=== PATIENT | female | born 1950 | race Caucasian/White ===

== ENCOUNTER 2016-12-31 22:29 | Inpatient (IN) | payer MEDICARE ==
--- NOTE | ~2016-12-31 | DS ---
Discharge Summary [facility] [address] [place]. [address] NAME: MOSES HOPKINS : 48 STATUS : DIS IN PAT#: [id number] AGE: 66 ADM/REG DATE : 12/31/16 MR#: [id number] REPORT SERV DATE: 01/09/17 DICTATED BY: MANUELA RIZO DATE: 01/08/17 REPORT STATUS : Draft TRANSCRIBED BY: MODL DATE: 01/08/17 ADMISSION DATE: 12/31/2016 DISCHARGE DATE: 01/08/2017 DISCHARGE DIAGNOSES: 1. Sick sinus syndrome, with paroxysmal atrial fibrillation, previous pacemaker therapy, and five cardioversions over two years, with rapid ventricular response on admission. 2. Chest pain, secondary to severe mid LAD and mid circumflex stenosis per cardiac cath on 01/06/2017, status post stent placement on 01/07/2017. 3. Acute kidney injury, on chronic kidney disease, stage III, improved at discharge. 4. Hypertension. 5. Diastolic congestive heart failure. 6. Uncontrolled type 2 diabetes, with hemoglobin A1c of 8.4, with both hyper and hypoglycemia while hospitalized, related to procedures, dietary changes, and miss meals. Diabetic neuropathy. 7. Obstructive sleep apnea. 8. Morbid obesity. 9. Restrictive lung disease. 10.Left breast cancer post surgery with subsequent left arm lymphedema. 11.History of recurrent syncope, status post pacemaker placement, with resolution of syncope. 12.Iron deficiency 11/2016. 13.Last EGD and colonoscopy by Dr. Watt on 08/2016. 14.Chronic anemia. OPERATIONS AND PROCEDURES: 1. Coronary arteriography on 01/06/2017. 2. Successful 2.25 x 24 mm [employer] ALONSO study stent dilated to 2.5 mm in the mid LAD, successful 3 x 24 mm [employer] ALONSO study stent dilated to 3.25 mm, with a proximal stent dilated to 3.5 mm in the mid circumflex on 01/07/2017. 3. DC cardioversion on 01/03/2017. HISTORY OF PRESENT ILLNESS: This is a 66-year-old white female, who was triaged in the emergency room on 12/31/2016 at 2229 hours complaining of chest pain. Admission vital signs, blood pressure 112/83, temperature 97.8, pulse 122, respirations 17, and O2 saturation 99%. After evaluation in the emergency room, she was found to be in atrial fibrillation with rapid ventricular response associated with an elevated BNP, D-dimer, and creatinine. She was referred to the Hospitalist Service for admission. She was seen by Dr. Herrera Martinez and admitted as described on admission history and physical examination. ADDITIONAL HISTORY: Per Dr. Martinez. PHYSICAL EXAMINATION: Discharge Summary [address] [address] NAME: MOSES HOPKINS : 49 STATUS : DIS IN PAT#: [id number] AGE: 66 ADM/REG DATE : 12/31/16 MR#: [id number] REPORT SERV DATE: 01/09/17 DICTATED BY: MANUELA RIZO DATE: 01/08/17 REPORT STATUS : Draft TRANSCRIBED BY: MODL DATE: 01/08/[address] Martinez. ADMISSION LABORATORY: Per Dr. Martinez. HOSPITAL COURSE: She was admitted by Dr. Martinez with: 1. Symptomatic atrial fibrillation. 2. Chest pain. 3. Elevated BNP. 4. Chronic kidney disease, stage III. 5. All the setting of the above-mentioned comorbidities. On admission, she was started on Cardizem. Consultation was obtained with Cardiology and Nephrology. Of note was that, she had a CTA of the chest done in the emergency room that did not show evidence for pulmonary embolus, thoracic aortic aneurysm, or dissection. She was admitted to [address] [place] [address] Jay's impression was: 1. Recurrent severe substernal chest pressure radiating to the neck of unclear etiology. 2. Rate controlled atrial fibrillation. 3. Chronic anticoagulation for atrial fibrillation. 4. Morbid obesity. Dr. Jay felt that she would likely have an abnormal cardiac stress test with image. He recommended a coronary arteriography when her renal function would allow. Her Eliquis was held. She was started on a heparin drip. Dr. Pollock thought that her acute kidney injury was from contrast nephropathy. He suggested holding her FERNANDO inhibitor therapy and giving her IV hydration, holding cardiac catheterization till her creatinine improved. Her hospitalist care was by Dr. Patino on 01/01/2017, 01/02/2017, and 01/03/2017; and the undersigned on 01/04/2017 until discharge. On 01/03/2017, it was elected to perform DC cardioversion as she remained in atrial fibrillation. This was done successfully by Dr. Dixon. Her troponin values during her hospitalization were less than 0.02, less than 0.02, less than 0.02, and less than 0.02 on 12/31/2016, 01/01/2017, 01/03/2017, and 01/07/2017. Her creatinine levels were 1.58 on 12/31/2016, 2.08 on 01/02/2017, 1.9 on 01/03/2017, 1.95 on 01/04/2017, 1.65 on 01/05/2017, and 1.39 on 01/06/2017. Nephrology okayed her first cardiac catheterization on that date and findings are as noted. On 01/07/2017, her creatinine was 1.4, and she was taken back to the label folder, where the second procedure as described above was performed. There were no complications with either procedure. On the morning of 01/08/2017, her creatinine was 1.36. During her hospitalization, while on heparin drip, she had an episode of bleeding. It was thought to be anorectal. As noted, she had an endoscopic GI evaluation in August of this Discharge Summary [address] [place]. [address] NAME: MOSES HOPKINS : 48 STATUS : DIS IN PAT#: [id number] AGE: 66 ADM/REG DATE : 12/31/16 MR#: [id number] REPORT SERV DATE: 01/09/17 DICTATED BY: MANUELA RIZO DATE: 01/08/17 REPORT STATUS : Draft TRANSCRIBED BY: MODOfelia DATE: 01/08/17 year. On exam by the undersigned, she had no perirectal or rectal abnormalities on exam, and no blood in her rectal vault. Her hemoglobin was 10.5 on admission. It fell to a low of 8.1 on 09/09/2016, and was 9.1 at discharge. She did not have further evident gastrointestinal bleeding. She did have variable blood sugars while hospitalized. In part, this was related to diet testing and meals. When she was changed on 01/05/2017 to a basal bolus correction schedule that more closely matched her home regimen. She had blood sugars of 125, 146, 112, 133, and 140 over an approximate 24-hour period. On 01/08/2017, she was seen by Cardiology and Nephrology and she was given clearance for discharge. When seen by the undersigned, she was voiding without her Shah catheter postprocedure. Back pain, she had postprocedure and resolved. She was having no groin pain. She was ambulatory without chest pain or shortness of breath. She had not had further rectal bleeding. Her vital signs were stable and laboratory studies were as noted. At this point in her hospitalization, it was felt she had achieved a level of improvement and stability, where she will be safely discharged home. She will be seen by her primary care physician, Dr. Jeannine Valdes in one week. She will see Dr. Jay in 10 days. She will follow up with Nephrology as scheduled and Dr. Manuela Hinds as scheduled. She will continue her home diet and activity noting that prior to her hospitalization, she had made changes with sustained weight loss. DISCHARGE MEDICATIONS: Aspirin 81 mg daily, Coreg 25 mg twice daily, Plavix 75 mg daily for 30 days, Eliquis 2.5 mg twice daily, Lasix 20 mg daily, Tresiba 48 units at bedtime, with her home NovoLog FlexPen a.c. scale 1 unit per 5 g of carbohydrate, Synthroid 150 mcg daily noting TSH of 0.920 on 11/29/2016, Mycostatin topical powder to groin and skin folds as needed, Prilosec 40 mg twice daily, sotalol 120 mg twice daily, Tylenol, Artificial Tears as needed, fiber capsule daily, vitamin D 50,000 units every seven days, ProAir RespiClick two puffs every four hours as needed, vitamin C 125 mg daily, Flonase nasal spray as needed, albuterol nebs every six hours as needed. She has some facial hydrocortisone cream and perirectal creams to use as needed. She will not use her home lisinopril until office followup. Discharge time greater than 30 minutes. DD/MODL Manuela Rizo M.D. / [id number] CC: Manuela Rizo M.D. Discharge Summary [address] [place]. [address] NAME: MOSES HOPKINS : 48 STATUS : DIS IN PAT#: [id number] AGE: 66 ADM/REG DATE : 12/31/16 MR#: [id number] REPORT SERV DATE: 01/09/17 DICTATED BY: MANUELA RIZO DATE: 01/08/17 REPORT STATUS : Draft TRANSCRIBED BY: MODL DATE: 01/08/17 SEBASTIAN VALDES M.D. Young S Chang, MD Henry Paik, M.D. Nathan Chamberlain, M.D. Ondrej J Lisy, M.D. Kevin P Luce, M.D. David Huffman, M.D.
--- NOTE | ~2016-12-31 | HP ---
History And Physical [address] [place]. [address] NAME: MOSES HOPKINS : 48 STATUS : ADM Verna PAT#: [id number] AGE: 66 ADM/REG DATE : 12/31/16 MR#: [id number] REPORT SERV DATE: 01/03/17 DICTATED BY: ROSEMARY RICARDO DATE: 01/01/17 REPORT STATUS : Draft TRANSCRIBED BY: MODL DATE: 01/01/17 DATE OF ADMISSION: 12/31/2016 POOR AUDIO CHIEF COMPLAINT: A 66-year-old female presenting with shortness of breath and chest pain. HISTORY OF PRESENT ILLNESS: The patient's history was obtained through careful interview with the patient, coupled with review of [facility] medical records. The patient states that she was in usual state of health when 7:30 on the evening of 12/31/2016, she began to develop chest pain and shortness of breath. She describes the shortness of breath as feeling "constricted" in her lungs with an exertional component. She describes the pain in her chest as right-sided, radiating to her shoulder blade, it is sharp quality. Also across the middle of her chest, up to an 8/10 severity, that is still not fully resolved. She has had no lower extremity edema. No palpitations. No lightheadedness. No nausea or vomiting. No abdominal pain. No change of bowel or bladder habit. No fevers or chills. REVIEW OF SYSTEMS: Otherwise, a 14-point review of systems was obtained was negative. PAST MEDICAL HISTORY: 1. Atrial fibrillation. Followed by Dr. Hernandez. 2. Left breast cancer with surgery in 1995. 3. Hypothyroidism. 4. Diabetes. Seen by Dr. Hinds. 5. Pacemaker. 6. Obstructive sleep apnea, but intolerant of CPAP. 7. Chronic left arm lymphedema with history of cellulitis. 8. Syncope. Followed by Dr. June with multiple workups. 9. Urinary tract infection. 10.Superficial venous thrombosis. 11.Psoriasis. 12.Diastolic congestive heart failure. 13.Nephrolithiasis. 14.Fibromyalgia. 15.Hypertension. 16.(inaudible) . 17.Neuropathy. 18.Pneumonia. 19.Spinal stenosis. History And Physical [address]. [address] NAME: MOSES HOPKINS : 48 STATUS : ADM Verna PAT#: [id number] AGE: 66 ADM/REG DATE : 12/31/16 MR#: [id number] REPORT SERV DATE: 01/03/17 DICTATED BY: ROSEMARY RICARDO DATE: 01/01/17 REPORT STATUS : Draft TRANSCRIBED BY: MODL DATE: 01/01/17 20.Chronic kidney disease, stage 3. Baseline creatinine of 1.2 to 1.5. PAST SURGICAL HISTORY: 1. Left mastectomy for breast cancer. 2. left frontal craniotomy for an anterior temporal lobectomy in 1980. 3. Umbilical hernia repair. 4. Cholecystectomy. 5. Left foot surgery. 6. Left knee surgery. ALLERGIES: SULFA, NIACIN, CODEINE, CARDIZEM. SOCIAL HISTORY: No tobacco abuse. No alcohol abuse. She is a . Has one daughter, one granddaughter. Lives in [place], [place]. FAMILY HISTORY: Mother at 69 years of age of a stroke. Father at 71 years of age of a stroke and heart disease. Sister at 69 years of age of congestive heart failure. Brother at 55 years with myocardial infarction. There is a family history of alcoholism. CURRENT MEDICATIONS: Include Tylenol, albuterol, Eliquis 5 mg p.o. b.i.d., eye drops, Coreg 25 mg p.o. b.i.d., vitamin D, Lasix 20 mg p.o. daily, Flonase, hydrocortisone cream, NovoLog, Tresiba insulin 48 units subcutaneous at bedtime, Synthroid 150 mcg daily, lisinopril 2.5 mg p.o. daily, Prilosec 40 mg p.o. b.i.d., sotalol 120 mg p.o. b.i.d., fiber, vitamin C. PHYSICAL EXAMINATION: VITAL SIGNS: Temperature 97.8, pulse 122, blood pressure 112/87, respiratory rate 17, O2 saturation 99% on room air. GENERAL: A pleasant, cooperative, female, in no evidence of distress while I am evaluating her. HEENT: Pupils equal, round, and reactive to light. No conjunctival pallor. No scleral icterus. Nares are patent. Oropharynx is clear of obstruction. Moist mucous membranes. NECK: Trachea midline. No thyromegaly. LYMPH: No cervical lymphadenopathy. No supraclavicular lymphadenopathy. RESPIRATORY: I do not appreciate any on the lung exam. There are definitely no wet rales. No wheezes, no rhonchi. The patient has a normal respiratory effort. CARDIOVASCULAR: Tachycardic, irregularly irregular, intermittently paced on the monitor. No murmurs, rubs, or gallops. I do not appreciate any lower extremity edema. ABDOMEN: Soft, nontender, nondistended. Normal bowel sounds auscultated throughout. No hepatosplenomegaly. DERMATOLOGIC: Warm and dry extremities. No pallor. No cyanosis. PSYCHIATRIC: Normal affect. Good mood. Alert and oriented x3. LABORATORY DATA: Brain natriuretic peptide 435. Troponin negative. INR 1.2. White blood History And Physical [address] [address] NAME: MOSES HOPKINS : 48 STATUS : ADM Verna PAT#: [id number] AGE: 66 ADM/REG DATE : 12/31/16 MR#: [id number] REPORT SERV DATE: 01/03/17 DICTATED BY: ROSEMARY RICARDO DATE: 01/01/17 REPORT STATUS : Draft TRANSCRIBED BY: MODL DATE: 01/01/17 cell count 6.6, hemoglobin 10, hematocrit 33, platelets 234. Sodium 139, potassium 4.6, chloride 104, bicarb 32, BUN 41, creatinine 1.58, glucose 126. STUDIES: 1. Chest x-ray by my own evaluation shows no acute cardiopulmonary process. 2. EKG by my own evaluation shows atrial fibrillation, occasional ventricular pacing. 3. CT angiogram of the chest shows no pulmonary embolism. ASSESSMENT AND PLAN: 1. Symptomatic rapid atrial fibrillation. Place on Cardizem drip IV. Check telemetry. Place on Eliquis. Consult Dr. Hernandez, [employer] attendant. 2. Chest pain evaluation. Question if it is only related to atrial fibrillation? Follow troponin. 3. Elevated brain natriuretic peptide. History of diastolic congestive heart failure. No evidence of volume overload currently though. We will monitor closely. 4. Chronic kidney disease stage 3. KPL/MODL Rosemary Ricardo M.D. / [id number] CC: MD Maria T Yu Danielle Ondrej J Lisy, M.D. David Huffman, M.D.
--- NOTE | ~2016-12-31 | CN ---
Consultation Report [facility] [address] [place]. [address] NAME: MOSES ROBLES : 48 STATUS : ADM Verna PAT#: [id number] AGE: 66 ADM/REG DATE : 12/31/16 MR#: [id number] REPORT SERV DATE: 01/02/17 DICTATED BY: AIDA ENGLAND DATE: 01/02/17 REPORT STATUS : Draft TRANSCRIBED BY: MODL DATE: 01/02/17 NEPHROLOGY CONSULT DATE OF CONSULTATION: 01/02/2017 REASON FOR CONSULT: Acute kidney injury, CKD in patient who needs contrast. HISTORY OF PRESENT ILLNESS: Ms. Robles is a 66-year-old white female who appears to have some degree of chronic kidney disease. It is the weekend and records from the office are not available. She was here in 11/2016 with volume overload. During that admission, her creatinine ranged between 1.1 and 1.7. She was sent home on 12/02/2016, with a creatinine of 1.7 with repeat labs on 12/15/2016, showing creatinine of 1.5. 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 At which time, she underwent CT angiogram of the chest which showed no evidence of PE. 80 mL of contrast was given. No labs were checked yesterday, but today her creatinine was up to 2.1. Cardiology would like to perform cardiac catheterization in the next few days. PAST MEDICAL HISTORY: 1. Chronic kidney disease, recent baseline creatinine 1.1 to 1.5. 2. Atrial fibrillation, status post multiple cardioversions, the most recent in 07/2016, on chronic Eliquis therapy. 3. Insulin-dependent diabetes mellitus. 4. History of pacemaker. 5. Hypertension, on FERNANDO inhibitor. 6. Hypothyroidism. 7. Obesity. CURRENT MEDICATIONS: Include albuterol inhaler, Eliquis 5 mg b.i.d., Coreg 25 mg b.i.d., vitamin D, Flonase, Lasix 20 mg daily, Tresiba 48 units at bedtime, Synthroid 150 mcg daily, Prinivil 2.5 mg daily, Prilosec, Betapace 120 mg b.i.d., and vitamin C. FAMILY HISTORY: Noncontributory. SOCIAL HISTORY: She is a . Retired sitter. Lives in [place] with her daughter and granddaughter. REVIEW OF SYSTEMS: Significant for events as per HPI with palpitations and chest pain and dyspnea. Does not take OTC NSAIDs at home. Denies urinary symptoms. PHYSICAL EXAMINATION: VITAL SIGNS: Temperature 96.8, pulse 77, respirations 20, blood pressure 115/71, and 98% saturation on room air. Intake and output are not complete. GENERAL: She is a very pleasant, friendly white female. Awake, alert, oriented, Consultation Report [facility] [address] [place]. [address] NAME: MOSES ROBLES : 49 STATUS : ADM Verna PAT#: [id number] AGE: 66 ADM/REG DATE : 12/31/16 MR#: [id number] REPORT SERV DATE: 01/02/17 DICTATED BY: AIDA ENGLAND DATE: 01/02/17 REPORT STATUS : Draft TRANSCRIBED BY: YAHAIRA DATE: 01/02/17 cooperative with the exam. Neuro exam is grossly nonfocal. She is in no distress. Eating lunch. Sitting in her hospital bed. HEENT: Sclerae without icterus. Conjunctivae not injected. Oropharynx is clear. NECK: JVD 8 to 10 cm. She has bilateral rhonchi without dyspnea or tachypnea on room air. HEART: Rate controlled. Rhythm is irregular. 2/6 murmur without rub. ABDOMEN: Obese, soft, nontender, nondistended. Bowel sounds present throughout without rebound, guarding, or peritoneal signs. EXTREMITIES: Show 1+ pitting edema to the knees. SKIN: Exam without rash. MUSCULOSKELETAL: Shows no gout. : Deferred. There is no Shah catheter. She has no livedo reticularis. NEUROLOGIC: Grossly nonfocal. Mood and affect are appropriate. LABORATORY DATA: Sodium 138, potassium 4.2, bicarb 27, BUN 56, creatinine 2.1, GFR 24, calcium 9.1, and magnesium 2.3. Troponin negative x2. White count 5100. INR 1.3. No eosinophils on the differential. Hemoglobin 11.2, platelets 261,000. Urinalysis shows no blood or protein. Echo, 11/2015 showed EF 55% with diastolic dysfunction. ASSESSMENT AND PLAN: Ms. Robles has chronic kidney disease, previous baseline creatinine 1.1 to 1.5, now with acute kidney injury in the setting of atrial fibrillation, pacemaker, insulin-dependent diabetes mellitus, chest pain, hypothyroidism. 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 In view of worsening renal function, we will stop the FERNANDO inhibitor. IV hydration gently with a close watch on her volume status with her diastolic dysfunction. She is high risk cardiac catheterization for worsening renal function with further exposure to contrast. Hold off as long as this is non-emergent. If renal function improves, she can proceed with renal arteriogram later in the week? Group will follow closely. Appreciate consult. DEWAYNE/MODL Aida England M.D. / [id number] CC: MD NINI Yu DANIELLE
--- NOTE | ~2016-12-31 | OP ---
Record Of Operation [facility] [address] [place]. [address] NAME: MOSES HOPKINS : 48 STATUS : ADM IN PAT#: [id number] AGE: 66 ADM/REG DATE : 12/31/16 MR#: [id number] REPORT SERV DATE: 01/03/17 DICTATED BY: GEORGE CABALLERO. DATE: 01/03/17 REPORT STATUS : Draft TRANSCRIBED BY: MODL DATE: 01/03/17 DATE OF PROCEDURE: 01/03/2017 CARDIOVERSION REPORT INDICATIONS: 66-year-old female with recurrent symptomatic atrial fibrillation and rapid ventricular response. No OTONIEL requested, multiple prior procedures with chronic therapeutic anticoagulation on Eliquis, now transitioned to IV heparin due to pending procedures. OTHER: Informed consent was obtained, signed on the chart prior to proceeding, a time-out was performed, and sedation was per Anesthesia. PROCEDURE: After adequate anesthesia was confirmed, a single 200 joule biphasic energy shock was delivered with the pads in the anterior-posterior position. Successful cardioversion to sinus rhythm at 79 beats per minute. COMPLICATIONS: None. CONCLUSION: Successful cardioversion to sinus rhythm. AEA/YAHAIRA George Caballero M.D. / [id number] CC: MD SEBASTIAN Yu
--- NOTE | ~2016-12-31 | CN ---
Consultation Report [facility] [address] [place]. [address] NAME: MOSES HOPKINS : 48 STATUS : ADM Verna PAT#: [id number] AGE: 66 ADM/REG DATE : 12/31/16 MR#: [id number] REPORT SERV DATE: 01/01/17 DICTATED BY: BRANDIN CHAPPELL DATE: 01/01/17 REPORT STATUS : Draft TRANSCRIBED BY: MODOfelia DATE: 01/01/17 CARDIOLOGY CONSULTATION DATE OF CONSULTATION: REFERRING REASON: Severe chest pain. HISTORY OF PRESENT ILLNESS: This is a pleasant 66-year-old white obese female with complex past medical history, well known to me from [facility]. She has recurrent hospitalizations for fluid overload and also chest pains. She does not have a known documented coronary artery disease, but has some multiple risk factors for it. She has paroxysmal atrial fibrillation status post cardioversion in 2014 and in 2015. She has been on chronic sotalol and now on Eliquis. She has not tolerated amiodarone. The patient has a preserved systolic function, but moderate diastolic dysfunction. She has had recurrent hospitalizations for fluid overload. She had recent hospitalization in November at [facility] for fluid overload. She was diuresed and discharged home. She apparently has been losing some weight. She still has a BMI of 46, however. The patient has a pacemaker in place. She has a history of breast cancer and diabetes. She has been in her usual state of health until yesterday evening when she developed at 0720 hours severe initially sharp right-sided pain, which transferred in a few minutes to severe pressure. It lasted about 1-1/2 hours and she called an ambulance. She has been brought to emergency room. Her first enzymes were negative. Pain was finally relieved with morphine. While she had recurrent severe chest pain, a CT of the chest was performed, which did not rule out any vascular catastrophe or pulmonary embolism. She was found to be in a rate-controlled atrial fibrillation, which is now asymptomatic. The patient has a transient episode of palpitations yesterday, but does not feel any palpitations now. She still has episodes of severe substernal chest pressure now, radiating to the neck last night, requiring morphine. She is tearful and stated that she never had similar chest pressure like that before. She has chronic mild lower extremity edema, but was able to lose weight. She has mild chronic dyspnea on exertion. Denies signs of PND. No syncope. She has been reported taking Eliquis daily. REVIEW OF SYSTEMS: The rest of review of systems is negative. PAST MEDICAL HISTORY: 1. Chronic diastolic heart failure with recent fluid overload. 2. Preserved systolic function with EF of 55% in 11/2016. 3. Pacemaker in place for sick sinus syndrome. 4. Paroxysmal atrial fibrillation with a history of cardioversion in 2014 and 2015. 5. Chronic anticoagulation with Eliquis. 6. Intolerance to amiodarone due to the general weakness. 7. Chronic sotalol use. 8. Morbidly obese with BMI of 46. 9. History of negative nuclear cardiac stress test in 2012 with nonobstructive CAD in 2006 Consultation Report [address] [place]. [address] NAME: MOSES HOPKINS : 48 STATUS : ADM Verna PAT#: [id number] AGE: 66 ADM/REG DATE : 12/31/16 MR#: [id number] REPORT SERV DATE: 01/01/17 DICTATED BY: BRANDIN CHAPPELL DATE: 01/01/17 REPORT STATUS : Draft TRANSCRIBED BY: YAHAIRA DATE: 01/01/17 elsewhere. 10.History of breast cancer. 11.Remote history of GI bleeding. No bleeding recently. 12.Hypertension. 13.Diabetes mellitus. SOCIAL HISTORY: The patient is a . She denies smoking, drinking alcohol, or using street drugs. FAMILY HISTORY: Negative for sudden cardiac or premature coronary artery disease in the family. ALLERGIES: SULFA AND CODEINE. SHE REPORTEDLY HAS SOME ITCHING WITH CARDIZEM AND ALSO INTOLERANCE TO AMIODARONE DUE TO WEAKNESS. HOME MEDICATIONS: Tylenol p.r.n., albuterol as needed, Eliquis 5 mg twice a day, Coreg 25 mg twice a day, Flonase, Lasix 20 mg once a day, insulin, Synthroid 150 mcg once a day, Prinivil 2.5 mg once a day, Prilosec 40 mg once a day, and sotalol 120 mg twice a day. PHYSICAL EXAMINATION: GENERAL: No acute distress. Morbid obese female, comfortable sitting on a bed. VITAL SIGNS: Blood pressure 120/82, heart rate 91 and irregular irregular. HEENT - Pupils reactive to light and accommodation. Moist mucosa membrane. LUNGS: Decreased breath sounds bilaterally. No crackles. ABDOMEN: Morbidly obese, distended, nontender. COR: Normal S1, S2. No S3 or S4. No significant rub or murmurs. EXTREMITIES: Lower extremities, trace edema around the ankle with decreased pedal pulses bilaterally. SKIN: Warm with normal turgor. MS - No kyphosis. NEURO/PSY - Alert and oriented. Nonfocal DATA: CBC is remarkable for hemoglobin of 10.5 and INR of 1.2. Creatinine 1.5, BUN 41. Troponin x2 negative. Brain natriuretic peptide 475, which was [address] of the chest: No acute pathology. No evidence of pulmonary embolism. Electrocardiogram revealed atrial fibrillation at 84 beats per minute with 1 PVC, and earlier today, 91 beats per minute, rate-controlled atrial fibrillation with 2 PVCs. ASSESSMENT AND PLAN: 1. Recurrent severe substernal chest pressure radiating to the neck of unclear etiology. 2. Rate-controlled atrial fibrillation. 3. Chronic anticoagulation for atrial fibrillation. 4. Morbid obesity. I reviewed current situation with the patient. The patient is now tearful with recurrent severe chest pain, requiring morphine. Etiology of her chest pain is unclear, and there is no clear evidence of acute coronary syndrome. Due to her Consultation Report [address] [place]. [address] NAME: MOSES HOPKINS : 48 STATUS : ADM Verna PAT#: [id number] AGE: 66 ADM/REG DATE : 12/31/16 MR#: [id number] REPORT SERV DATE: 01/01/17 DICTATED BY: BRANDIN CHAPPELL DATE: 01/01/17 REPORT STATUS : Draft TRANSCRIBED BY: YAHAIRA DATE: 01/01/17 body habitus, I am concerned that she may have falsely abnormal cardiac stress test. We will proceed with it. She has had recurrent hospitalizations and we yet to have a definitive diagnosis to see if she has any obstructive coronary artery disease. Thus, we will proceed with coronary arteriogram on Tuesday. The patient has been explained risks and benefits, she has agreed to proceed. We will hold her Eliquis. We will start her on intravenous heparin, continue beta-blockers, FERNANDO inhibitor. We will put her on fluid restriction and follow her heart kidney function carefully. No obvious signs of fluid overload on physical exam currently. CT has not revealed any pleural effusion. If there is no obstructive coronary artery disease, we will plan to restart Eliquis. No clear indication for cardioversion at the present time while the patient is asymptomatic and atrial fibrillation is now rate controlled. Plan has been discussed with Dr. Patino who is primary on her in the hospital. OJL/MODL Brandin Chappell M.D. / [id number] CC: MD NINI Yu DANIELLE
[~2016-12-31 22:29] MED LIST: ACET500CAP PO; ALEVE220 MG PO; ARMOUR THYRO90 MG PO; BETAP120 PO; BETAPACE80 PO; C2 PO; CORDARONE PO; COREG25 PO; COUMADIN4 MG PO; DCN100 PO; ELIQUIS 5 MG TAB5 MG PO; FIBER PO; FLONASE NAS; FLORASTOR250 MG PO; GLUCPH PO; HYGROTON 25 MG25 MG PO; IMDUR60 PO; KDUR10 PO; L20 PO; LEVEMFLXPN SC; LEVEMIR SC; LEVOTHYROXIN137 MCG PO; LEVOTHYROXIN150 MCG PO; LIPITOR40 PO; LISINOPRIL40 MG PO; LOP25 PO; LOP50 PO; MAXIMUM D3 PO; NEUR300 PO; NORCO1 TA1 PO; NOVOLOG SC; NOVOPEN SC; NOVREGPUMP SC; PENICILLIN V PO/LIQ; PENICILLIN VK PO; PENICILLN VK500 MG PO; PENVK250 PO; PREV30 PO; PRILO PO; PRILOSEC40 MG PO; PRIN10 PO; PRIN2.5 PO; PRIN20 PO; PRIN5 PO; PROAIRRESP INH; PROVHFA INH; SPIRO25 PO; SYMBICORT 160/41 INH INH; SYN.15 PO; SYN125 PO; SYNTHROID137 MCG PO; SYNTHROID175 MCG PO; SYNTHROID200 MCG PO; T PO; TOPXL25 PO; TRESIBA FL100 UNIT/1 SC; TRESIBA FL200 UNIT/1 SC; TYLENOL ARTH650 MG PO; ULTRAM50 PO; VANCOCIN HCL125 MG PO/LIQ; VIBRATAB100 MG PO; VITAMIN C PO; VITAMIN C100 M1 PO; VITAMIN C100 MG PO; VITC500 PO; VITD PO; ZESTRIL20 MG PO; ZOCOR20 PO; [UNRECOGNIZED DRUG - CODE]; [UNRECOGNIZED DRUG - OTHER] TOP
[2017-01-01 00:24] LABS: BASOPHILS 0.5 %; BASOPHILS ABSOLUTE 0.03 10/3/uL (0.0-0.16); EOSINOPHILS 1.8 %; EOSINOPHILS ABSOLUTE 0.12 10/3/uL (0.0-0.53); HEMATOCRIT 32.8 % (36.0-48.0); HEMOGLOBIN 10.5 g/dL (12.0-16.0); IMMATURE GRANULOCYTES 0.2 %; IMMATURE GRANULOCYTES ABSOLUTE 0.01 10/3/uL (0.0-0.11); LYMPHOCYTES 41.2 %; MEAN CORPUSCULAR HEMOGLOB 30.6 pg (26.0-34.0); MEAN CORPUSCULAR VOLUME 95.6 fL (80-100); MEAN PLATELET VOLUME 9.4 fL (9.2-13.0); MONOCYTES 5.9 %; MONOCYTES ABSOLUTE 0.39 10/3/uL (0.21-1.20); NEUTROPHILS 50.4 %; NEUTROPHILS ABSOLUTE 3.31 10/3/uL (2.02-8.40); PLATELET COUNT 234 10/3/uL (150-400); RED CELL COUNT 3.43 10/6/uL (4.0-5.6); WHITE BLOOD CELLS 6.6 10/3/uL (4.5-10.5)
[2017-01-01 00:25] LABS: ER CBC TAT 0 Hrs 00 MinsNP; MANUAL DIFF NO %
[2017-01-01 00:31] LABS: INTERNATIONAL NORMAL RATI 1.2 UNITS (-); PARTIAL THROMBO TIME 29.1 SEC (22.5-37.2); PROTIME (NOT ORD) 14.7 SEC (12.0-14.5)
[2017-01-01 00:34] LABS: D-DIMER QUANTITATIVE 0.62 ug/mLFEU (< 0.50)
[2017-01-01 00:37] LABS: CALCIUM, SERUM 9.1 MG/DL (8.5-10.4); CHEST PAIN PROFILE TAT 0 Hrs 20 Mins; CHLORIDE, SERUM 104 MMOL/L (96-112); CREATININE 1.58 MG/DL (0.55-1.02); GFR AFRICAN AMERICAN 39 ML/MIN (>=60); GFR NON AFRICAN AMERICAN 34 ML/MIN (>=60); POTASSIUM, SERUM 4.6 MMOL/L (3.5-5.3); SODIUM, SERUM 139 MMOL/L (135-148); TROPONIN I <0.02 NG/ML (<0.05)
[2017-01-01 00:41] LABS: BUN (BLOOD UREA NITROGEN) 41 MG/DL (6-23); CO2 (CARBON DIOXIDE) 32 MMOL/L (24-34); GLUCOSE, SERUM 126 MG/DL (60-99)
[2017-01-01] MEDS ORDERED: ACET500CAP PO (03:15)
[2017-01-01] MEDS ORDERED: TEARS PURE OPH (03:15)
[2017-01-01] MEDS ORDERED: L20 PO (03:16)
[2017-01-01] MEDS ORDERED: COREG25 PO (03:16)
[2017-01-01] MEDS ORDERED: HYDROCORTISONE30 G1 TOP (03:16)
[2017-01-01] MEDS ORDERED: VITD PO (03:18)
[2017-01-01] MEDS ORDERED: PRIN2.5 PO (03:18)
[2017-01-01] MEDS ORDERED: SYN.15 PO (03:18)
[2017-01-01] MEDS ORDERED: FIBER 0.52 GM PO (03:18)
[2017-01-01] MEDS ORDERED: PRILOSEC40 MG PO (03:18)
[2017-01-01] MEDS ORDERED: BETAP120 PO (03:19)
[2017-01-01] MEDS ORDERED: NYSTATPOW TOP (03:19)
[2017-01-01] MEDS ORDERED: ELIQUIS 2.5 MG2.5 MG PO (03:19)
[2017-01-01] MEDS ORDERED: TRESIBA FL200 UNIT/1 SC (03:19)
[2017-01-01] MEDS ORDERED: PROAIRRESP INH (03:20)
[2017-01-01] MEDS ORDERED: VITAMIN C PO (03:21)
[2017-01-01] MEDS ORDERED: FLONASE NAS (03:21)
[2017-01-01] MEDS ORDERED: NOVOPEN SC (03:21)
[2017-01-01] MEDS ORDERED: ALBUTEROL0.083 % INH (03:22)
[2017-01-01 10:21] LABS: ASCORBIC ACID (UR NOT ORDER) NEG (NEG); BILIRUBIN, URINE NEGATIVE (NEG); KETONE, URINE NEGATIVE (NEG); LEUKOCYTE ESTERASE(NOT OR LARGE (NEG); WBC (NOT ORDERED) (RFLEX) 21 (0-5)
[2017-01-01 15:13] LABS: BASOPHILS 0.2 %; BASOPHILS ABSOLUTE 0.01 10/3/uL (0.0-0.16); EOSINOPHILS 0 %; HEMOGLOBIN 11.2 g/dL (12.0-16.0); IMMATURE GRANULOCYTES 0.2 %; IMMATURE GRANULOCYTES ABSOLUTE 0.01 10/3/uL (0.0-0.11); LYMPHOCYTES 11.1 %; LYMPHOCYTES ABSOLUTE 0.56 10/3/uL (0.67-4.30); MEAN CORPUS HGB CONC 32.9 g/dL (32.0-36.0); MEAN CORPUSCULAR HEMOGLOB 31.4 pg (26.0-34.0); MEAN CORPUSCULAR VOLUME 95.2 fL (80-100); MONOCYTES 0.6 %; MONOCYTES ABSOLUTE 0.03 10/3/uL (0.21-1.20); NEUTROPHILS 87.9 %; NEUTROPHILS ABSOLUTE 4.45 10/3/uL (2.02-8.40); PLATELET COUNT 261 10/3/uL (150-400); RBC DISTRIBUTION WIDTH 13.1 % (12.0-16.0); RED CELL COUNT 3.57 10/6/uL (4.0-5.6); WHITE BLOOD CELLS 5.1 10/3/uL (4.5-10.5)
[2017-01-01 15:14] LABS: MANUAL DIFF NO %
[2017-01-01 15:23] LABS: INTERNATIONAL NORMAL RATI 1.3 UNITS (-); PARTIAL THROMBO TIME 29.4 SEC (22.5-37.2); PROTIME (NOT ORD) 16.4 SEC (12.0-14.5)
[2017-01-02 07:06] LABS: CALCIUM, SERUM 8.8 MG/DL (8.5-10.4); CHLORIDE, SERUM 102 MMOL/L (96-112); POTASSIUM, SERUM 4.2 MMOL/L (3.5-5.3); SODIUM, SERUM 138 MMOL/L (135-148)
[2017-01-02 07:07] LABS: BUN (BLOOD UREA NITROGEN) 56 MG/DL (6-23); CO2 (CARBON DIOXIDE) 27 MMOL/L (24-34); CREATININE 2.08 MG/DL (0.55-1.02); GFR AFRICAN AMERICAN 28 ML/MIN (>=60); GFR NON AFRICAN AMERICAN 24 ML/MIN (>=60); GLUCOSE, SERUM 70 MG/DL (60-99)
[2017-01-03 01:47] LABS: BUN (BLOOD UREA NITROGEN) 54 MG/DL (6-23); CALCIUM, SERUM 8.9 MG/DL (8.5-10.4); CHLORIDE, SERUM 103 MMOL/L (96-112); CO2 (CARBON DIOXIDE) 31 MMOL/L (24-34); CPK 68 U/L (0-200); GFR AFRICAN AMERICAN 31 ML/MIN (>=60); GFR NON AFRICAN AMERICAN 27 ML/MIN (>=60); GLUCOSE, SERUM 70 MG/DL (60-99); POTASSIUM, SERUM 3.9 MMOL/L (3.5-5.3); SODIUM, SERUM 138 MMOL/L (135-148); TROPONIN I <0.02 NG/ML (<0.05)
[2017-01-03 01:49] LABS: CK-MB 1.7 NG/ML
[2017-01-03 02:10] LABS: BASOPHILS 0.2 %; BASOPHILS ABSOLUTE 0.01 10/3/uL (0.0-0.16); EOSINOPHILS 0.9 %; EOSINOPHILS ABSOLUTE 0.06 10/3/uL (0.0-0.53); HEMOGLOBIN 9.7 g/dL (12.0-16.0); IMMATURE GRANULOCYTES 0.2 %; IMMATURE GRANULOCYTES ABSOLUTE 0.01 10/3/uL (0.0-0.11); LYMPHOCYTES 48.9 %; LYMPHOCYTES ABSOLUTE 3.22 10/3/uL (0.67-4.30); MEAN CORPUS HGB CONC 33.4 g/dL (32.0-36.0); MEAN CORPUSCULAR VOLUME 95.7 fL (80-100); MEAN PLATELET VOLUME 9.7 fL (9.2-13.0); MONOCYTES 5.3 %; MONOCYTES ABSOLUTE 0.35 10/3/uL (0.21-1.20); NEUTROPHILS 44.5 %; NEUTROPHILS ABSOLUTE 2.93 10/3/uL (2.02-8.40); PLATELET COUNT 262 10/3/uL (150-400); RBC DISTRIBUTION WIDTH 13.3 % (12.0-16.0); RED CELL COUNT 3.03 10/6/uL (4.0-5.6); WHITE BLOOD CELLS 6.6 10/3/uL (4.5-10.5)
[2017-01-03 02:11] LABS: MANUAL DIFF NO %
[2017-01-03 02:39] LABS: BUN (BLOOD UREA NITROGEN) 52 MG/DL (6-23); CALCIUM, SERUM 8.9 MG/DL (8.5-10.4); CHLORIDE, SERUM 104 MMOL/L (96-112); CREATININE 1.89 MG/DL (0.55-1.02); GFR AFRICAN AMERICAN 31 ML/MIN (>=60); GFR NON AFRICAN AMERICAN 27 ML/MIN (>=60); GLUCOSE, SERUM 60 MG/DL (60-99); POTASSIUM, SERUM 4.1 MMOL/L (3.5-5.3); SODIUM, SERUM 140 MMOL/L (135-148)
[2017-01-03 02:47] LABS: CO2 (CARBON DIOXIDE) 25 MMOL/L (24-34)
[2017-01-04 01:56] LABS: BASOPHILS 0.3 %; BASOPHILS ABSOLUTE 0.02 10/3/uL (0.0-0.16); EOSINOPHILS 1.1 %; EOSINOPHILS ABSOLUTE 0.07 10/3/uL (0.0-0.53); HEMOGLOBIN 10.2 g/dL (12.0-16.0); IMMATURE GRANULOCYTES 0.2 %; IMMATURE GRANULOCYTES ABSOLUTE 0.01 10/3/uL (0.0-0.11); LYMPHOCYTES 30.5 %; LYMPHOCYTES ABSOLUTE 1.95 10/3/uL (0.67-4.30); MEAN CORPUS HGB CONC 32.9 g/dL (32.0-36.0); MEAN CORPUSCULAR VOLUME 97.2 fL (80-100); MEAN PLATELET VOLUME 9.9 fL (9.2-13.0); MONOCYTES 10.3 %; MONOCYTES ABSOLUTE 0.66 10/3/uL (0.21-1.20); NEUTROPHILS 57.6 %; NEUTROPHILS ABSOLUTE 3.69 10/3/uL (2.02-8.40); PLATELET COUNT 282 10/3/uL (150-400); RBC DISTRIBUTION WIDTH 13.2 % (12.0-16.0); RED CELL COUNT 3.19 10/6/uL (4.0-5.6); WHITE BLOOD CELLS 6.4 10/3/uL (4.5-10.5)
[2017-01-04 01:57] LABS: MANUAL DIFF NO %
[2017-01-04 02:07] LABS: ALBUMIN 2.8 G/DL (3.5-5.0); CHLORIDE, SERUM 102 MMOL/L (96-112); CREATININE 1.95 MG/DL (0.55-1.02); GFR AFRICAN AMERICAN 30 ML/MIN (>=60); GFR NON AFRICAN AMERICAN 26 ML/MIN (>=60); PHOSPHORUS, SERUM 3.9 MG/DL (2.5-4.5); POTASSIUM, SERUM 4.1 MMOL/L (3.5-5.3); SODIUM, SERUM 139 MMOL/L (135-148)
[2017-01-04 02:08] LABS: BUN (BLOOD UREA NITROGEN) 43 MG/DL (6-23); CO2 (CARBON DIOXIDE) 30 MMOL/L (24-34); GLUCOSE, SERUM 246 MG/DL (60-99)
[2017-01-04 10:58] LABS: FERRITIN 50 NG/ML (8-252)
[2017-01-05 03:44] LABS: BASOPHILS 0.2 %; BASOPHILS ABSOLUTE 0.02 10/3/uL (0.0-0.16); EOSINOPHILS 0.6 %; EOSINOPHILS ABSOLUTE 0.06 10/3/uL (0.0-0.53); HEMOGLOBIN 8.9 g/dL (12.0-16.0); IMMATURE GRANULOCYTES 0.3 %; IMMATURE GRANULOCYTES ABSOLUTE 0.03 10/3/uL (0.0-0.11); LYMPHOCYTES ABSOLUTE 1.31 10/3/uL (0.67-4.30); MEAN CORPUSCULAR HEMOGLOB 31.4 pg (26.0-34.0); MEAN CORPUSCULAR VOLUME 95.4 fL (80-100); MEAN PLATELET VOLUME 9.6 fL (9.2-13.0); MONOCYTES 5.9 %; MONOCYTES ABSOLUTE 0.59 10/3/uL (0.21-1.20); NEUTROPHILS ABSOLUTE 8.03 10/3/uL (2.02-8.40); PLATELET COUNT 250 10/3/uL (150-400); RBC DISTRIBUTION WIDTH 12.8 % (12.0-16.0); RED CELL COUNT 2.83 10/6/uL (4.0-5.6)
[2017-01-05 03:47] LABS: MANUAL DIFF NO %
[2017-01-05 03:58] LABS: BUN (BLOOD UREA NITROGEN) 36 MG/DL (6-23); CALCIUM, SERUM 8.7 MG/DL (8.5-10.4); CHLORIDE, SERUM 103 MMOL/L (96-112); CO2 (CARBON DIOXIDE) 26 MMOL/L (24-34); CREATININE 1.65 MG/DL (0.55-1.02); GFR AFRICAN AMERICAN 37 ML/MIN (>=60); GFR NON AFRICAN AMERICAN 32 ML/MIN (>=60); GLUCOSE, SERUM 307 MG/DL (60-99); POTASSIUM, SERUM 4.4 MMOL/L (3.5-5.3); SODIUM, SERUM 138 MMOL/L (135-148)
[2017-01-05 16:40] LABS: HEMATOCRIT 29.7 % (36.0-48.0); HEMOGLOBIN 9.7 g/dL (12.0-16.0)
[2017-01-06 07:09] LABS: BASOPHILS 0.5 %; BASOPHILS ABSOLUTE 0.03 10/3/uL (0.0-0.16); EOSINOPHILS 3.8 %; EOSINOPHILS ABSOLUTE 0.22 10/3/uL (0.0-0.53); HEMATOCRIT 27.9 % (36.0-48.0); HEMOGLOBIN 9.2 g/dL (12.0-16.0); IMMATURE GRANULOCYTES 0.2 %; IMMATURE GRANULOCYTES ABSOLUTE 0.01 10/3/uL (0.0-0.11); LYMPHOCYTES 36.6 %; LYMPHOCYTES ABSOLUTE 2.14 10/3/uL (0.67-4.30); MEAN CORPUSCULAR HEMOGLOB 31.4 pg (26.0-34.0); MEAN CORPUSCULAR VOLUME 95.2 fL (80-100); MEAN PLATELET VOLUME 9.1 fL (9.2-13.0); MONOCYTES 8.5 %; NEUTROPHILS 50.4 %; NEUTROPHILS ABSOLUTE 2.95 10/3/uL (2.02-8.40); PLATELET COUNT 252 10/3/uL (150-400); RBC DISTRIBUTION WIDTH 13.2 % (12.0-16.0); RED CELL COUNT 2.93 10/6/uL (4.0-5.6)
[2017-01-06 07:10] LABS: MANUAL DIFF NO %; WHITE BLOOD CELLS 5.9 10/3/uL (4.5-10.5)
[2017-01-06 07:21] LABS: INTERNATIONAL NORMAL RATI 1.1 UNITS (-); PROTIME (NOT ORD) 14.4 SEC (12.0-14.5)
[2017-01-06 07:23] LABS: ALBUMIN 2.7 G/DL (3.5-5.0); BUN (BLOOD UREA NITROGEN) 25 MG/DL (6-23); CHLORIDE, SERUM 106 MMOL/L (96-112); CO2 (CARBON DIOXIDE) 30 MMOL/L (24-34); GLUCOSE, SERUM 126 MG/DL (60-99); POTASSIUM, SERUM 4.1 MMOL/L (3.5-5.3); SODIUM, SERUM 141 MMOL/L (135-148)
[2017-01-06 07:28] LABS: CHOL/HDL RATIO(NOT ORDER) 4.2 (0-5); CHOLESTEROL 154 MG/DL (< 200); CREATININE 1.39 MG/DL (0.55-1.02); GFR AFRICAN AMERICAN 45 ML/MIN (>=60); GFR NON AFRICAN AMERICAN 39 ML/MIN (>=60); HDL CHOLESTEROL 37 MG/DL (> 49); LDL CHOLESTEROL 94 MG/DL (< 130); NON-HDL CHOLESTEROL 117 MG/DL (< 160); PHOSPHORUS, SERUM 2.8 MG/DL (2.5-4.5); TRIGLYCERIDE 119 MG/DL (< 150)
[2017-01-06 18:30] LABS: HEMATOCRIT 26.7 % (36.0-48.0); HEMOGLOBIN 8.6 g/dL (12.0-16.0)
[2017-01-07 07:00] LABS: BASOPHILS 0.3 %; BASOPHILS ABSOLUTE 0.02 10/3/uL (0.0-0.16); EOSINOPHILS 3.8 %; EOSINOPHILS ABSOLUTE 0.22 10/3/uL (0.0-0.53); HEMATOCRIT 25.1 % (36.0-48.0); HEMOGLOBIN 8.1 g/dL (12.0-16.0); IMMATURE GRANULOCYTES 0.2 %; IMMATURE GRANULOCYTES ABSOLUTE 0.01 10/3/uL (0.0-0.11); LYMPHOCYTES 33.6 %; LYMPHOCYTES ABSOLUTE 1.94 10/3/uL (0.67-4.30); MEAN CORPUS HGB CONC 32.3 g/dL (32.0-36.0); MEAN CORPUSCULAR HEMOGLOB 30.6 pg (26.0-34.0); MEAN CORPUSCULAR VOLUME 94.7 fL (80-100); MEAN PLATELET VOLUME 9.2 fL (9.2-13.0); MONOCYTES 7.1 %; MONOCYTES ABSOLUTE 0.41 10/3/uL (0.21-1.20); NEUTROPHILS ABSOLUTE 3.17 10/3/uL (2.02-8.40); PLATELET COUNT 270 10/3/uL (150-400); RBC DISTRIBUTION WIDTH 13.2 % (12.0-16.0); RED CELL COUNT 2.65 10/6/uL (4.0-5.6); WHITE BLOOD CELLS 5.8 10/3/uL (4.5-10.5)
[2017-01-07 07:03] LABS: MANUAL DIFF NO %
[2017-01-07 07:23] LABS: INTERNATIONAL NORMAL RATI 1.3 UNITS (-); PROTIME (NOT ORD) 15.7 SEC (12.0-14.5)
[2017-01-07 07:24] LABS: PARTIAL THROMBO TIME 61.5 SEC (22.5-37.2)
[2017-01-07 08:56] LABS: ALBUMIN 2.8 G/DL (3.5-5.0); CALCIUM, SERUM 8.8 MG/DL (8.5-10.4); CHOL/HDL RATIO(NOT ORDER) 3.5 (0-5); CHOLESTEROL 142 MG/DL (< 200); HDL CHOLESTEROL 41 MG/DL (> 49); LDL CHOLESTEROL 82 MG/DL (< 130); NON-HDL CHOLESTEROL 101 MG/DL (< 160); TRIGLYCERIDE 95 MG/DL (< 150)
[2017-01-07 09:09] LABS: CHLORIDE, SERUM 105 MMOL/L (96-112); CO2 (CARBON DIOXIDE) 27 MMOL/L (24-34); GFR AFRICAN AMERICAN 45 ML/MIN (>=60); GFR NON AFRICAN AMERICAN 39 ML/MIN (>=60); POTASSIUM, SERUM 4.2 MMOL/L (3.5-5.3); SODIUM, SERUM 139 MMOL/L (135-148)
[2017-01-07 09:10] LABS: BUN (BLOOD UREA NITROGEN) 21 MG/DL (6-23); GLUCOSE, SERUM 274 MG/DL (60-99)
[2017-01-07 18:46] LABS: HEMATOCRIT 27.2 % (36.0-48.0); HEMOGLOBIN 8.9 g/dL (12.0-16.0)
[2017-01-07 21:48] LABS: HEMATOCRIT 49.1 % (36.0-48.0); HEMOGLOBIN 15.8 g/dL (12.0-16.0)
[2017-01-07 22:45] LABS: HEMATOCRIT 26.6 % (36.0-48.0); HEMOGLOBIN 8.8 g/dL (12.0-16.0)
[2017-01-08 07:52] LABS: BASOPHILS 0.2 %; BASOPHILS ABSOLUTE 0.01 10/3/uL (0.0-0.16); EOSINOPHILS 4.3 %; EOSINOPHILS ABSOLUTE 0.23 10/3/uL (0.0-0.53); HEMATOCRIT 27.2 % (36.0-48.0); HEMOGLOBIN 9.1 g/dL (12.0-16.0); LYMPHOCYTES 26.3 %; LYMPHOCYTES ABSOLUTE 1.39 10/3/uL (0.67-4.30); MEAN CORPUS HGB CONC 33.5 g/dL (32.0-36.0); MEAN CORPUSCULAR HEMOGLOB 31.6 pg (26.0-34.0); MEAN CORPUSCULAR VOLUME 94.4 fL (80-100); MEAN PLATELET VOLUME 8.8 fL (9.2-13.0); MONOCYTES 6.4 %; MONOCYTES ABSOLUTE 0.34 10/3/uL (0.21-1.20); NEUTROPHILS 62.8 %; NEUTROPHILS ABSOLUTE 3.32 10/3/uL (2.02-8.40); PLATELET COUNT 271 10/3/uL (150-400); RBC DISTRIBUTION WIDTH 13.4 % (12.0-16.0); RED CELL COUNT 2.88 10/6/uL (4.0-5.6); WHITE BLOOD CELLS 5.3 10/3/uL (4.5-10.5)
[2017-01-08 07:55] LABS: MANUAL DIFF NO %
[2017-01-08 08:10] LABS: ALBUMIN 2.7 G/DL (3.5-5.0); BUN (BLOOD UREA NITROGEN) 16 MG/DL (6-23); CHLORIDE, SERUM 106 MMOL/L (96-112); CO2 (CARBON DIOXIDE) 30 MMOL/L (24-34); CREATININE 1.36 MG/DL (0.55-1.02); GFR AFRICAN AMERICAN 47 ML/MIN (>=60); GFR NON AFRICAN AMERICAN 40 ML/MIN (>=60); GLUCOSE, SERUM 204 MG/DL (60-99); PHOSPHORUS, SERUM 3.4 MG/DL (2.5-4.5); POTASSIUM, SERUM 3.9 MMOL/L (3.5-5.3); SODIUM, SERUM 140 MMOL/L (135-148); TROPONIN I 0.06 NG/ML (<0.05)
[2017-01-08] MEDS ORDERED: ASAB PO (13:58)
[2017-01-08] MEDS ORDERED: PLAVIX PO (13:59)
[2017-01-19] MEDS ORDERED: HALF81 PO (20:37)
[2017-01-19] MEDS ORDERED: LEVOTHYROXIN150 MCG PO (20:37)
[2017-01-19] MEDS ORDERED: ELIQUIS 2.5 MG2.5 MG PO (20:37)
[2017-01-19] MEDS ORDERED: VITAMIN C PO (20:37)
[2017-01-19] MEDS ORDERED: BETAP120 PO (20:38)
[2017-01-19] MEDS ORDERED: COREG25 PO (20:38)
[2017-01-19] MEDS ORDERED: PROAIRRESP INH (20:38)
[2017-01-19] MEDS ORDERED: NOVOPEN SC (20:39)
[2017-01-19] MEDS ORDERED: FIBER 0.52 GM PO (20:39)
[2017-01-19] MEDS ORDERED: VITD PO (20:39)
[2017-01-19] MEDS ORDERED: TRESIBA FL200 UNIT/1 SC (20:40)
[2017-01-19] MEDS ORDERED: PLAVIX PO (20:40)
[2017-01-19] MEDS ORDERED: ALBUTEROL0.083 % INH (20:40)
[2017-01-19] MEDS ORDERED: TEARS PURE OPH (20:41)
[2017-01-19] MEDS ORDERED: HYDROCORTISONE30 G1 TOP (20:41)
[2017-01-19] MEDS ORDERED: L20 PO (20:41)
[2017-01-19] MEDS ORDERED: NYSTATPOW TOP (20:42)
[2017-01-19] MEDS ORDERED: ACET500CAP PO (20:42)
== END 2017-01-08 14:30 | disposition home or self-care (01) | DRG 246 ==
LOC: ER 22:29 → 6NO 23:59 → SSU1 01-07 13:17
PROVIDERS: Emergency Medicine; Internal Medicine; Internal Medicine Cardiovascular Disease; Internal Medicine Nephrology
PROC: 027136Z Dilation of Coronary Artery, Two Arteries with Three Drug-eluting Intraluminal Devices, Percutaneous Approach (ICD-10-PCS; principal; 2017-01-03)
PROC: B2151ZZ Fluoroscopy of Left Heart using Low Osmolar Contrast (ICD-10-PCS; 2017-01-06)
PROC: B2111ZZ Fluoroscopy of Multiple Coronary Arteries using Low Osmolar Contrast (ICD-10-PCS; 2017-01-06)
PROC: 4A023N7 Measurement of Cardiac Sampling and Pressure, Left Heart, Percutaneous Approach (ICD-10-PCS; 2017-01-06)
DX: I25.10 Atherosclerotic heart disease of native coronary artery without angina pectoris (principal); N17.0 Acute kidney failure with tubular necrosis; E11.22 Type 2 diabetes mellitus with diabetic chronic kidney disease; E11.42 Type 2 diabetes mellitus with diabetic polyneuropathy; I49.5 Sick sinus syndrome; I50.32 Chronic diastolic (congestive) heart failure; I13.0 Hypertensive heart and chronic kidney disease with heart failure and stage 1 through stage 4 chronic kidney disease, or unspecified chronic kidney disease; I48.0 Paroxysmal atrial fibrillation; G62.9 Polyneuropathy, unspecified; Z68.42 Body mass index [BMI] 45.0-49.9, adult; E11.65 Type 2 diabetes mellitus with hyperglycemia; D50.9 Iron deficiency anemia, unspecified; T50.8X5A Adverse effect of diagnostic agents, initial encounter; Y92.234 Operating room of hospital as the place of occurrence of the external cause; Z00.6 Encounter for examination for normal comparison and control in clinical research program; E66.01 Morbid (severe) obesity due to excess calories; I89.0 Lymphedema, not elsewhere classified; M79.7 Fibromyalgia; M48.00 Spinal stenosis, site unspecified; N18.3 Chronic kidney disease, stage 3 (moderate); E03.9 Hypothyroidism, unspecified; G47.33 Obstructive sleep apnea (adult) (pediatric); E78.00 Pure hypercholesterolemia, unspecified; Z95.0 Presence of cardiac pacemaker; Z79.4 Long term (current) use of insulin; Z79.02 Long term (current) use of antithrombotics/antiplatelets; Z88.2 Allergy status to sulfonamides; Z88.5 Allergy status to narcotic agent; Z88.8 Allergy status to other drugs, medicaments and biological substances; Z82.3 Family history of stroke; Z82.49 Family history of ischemic heart disease and other diseases of the circulatory system; Z81.1 Family history of alcohol abuse and dependence
CPT/HCPCS: 71010; 71275; 80048; 80061; 80069; 81001; 82550; 82553; 82728; 82962; 83735; 83880; 84484; 85014; 85018; 85025; 85379; 85610; 85730; 87086; 92960; 93005; 93458; 96374; 96375; 96376; 99152; 99153; 99291; A9270-GY; C1725; C1769; C1887; C1894; C9600; J0360; J0583; J1200; J2250; J2405; J2930; J3010; Q9967